=== PATIENT | female | born 1970 | race Caucasian/White ===

== ENCOUNTER → 2018-08-31 | Outpatient (REF) | payer BC ==
[~2018-08-31] MED LIST: /MOM400 PO; ACET50TA PO; ANUS2.5C2 EXT; COLA50CA3 PO; IBUP600T26 PO; LANOOIN21 TOP; PRENTAB74 PO
[2018-08-31 19:02] LABS: BASO % 0.7 % (0.0-1.0); EOS # 0.1 10^3/uL (0.0-0.50); EOS % 1.2 % (0.0-3.0); HEMATOCRIT 38.2 % (36.0-47.0); LYMPH # 1.2 10^3/uL (1.5-4.5); LYMPH % 27.8 % (24.0-44.0); MEAN CORPUSCULAR HEMOGLOBIN 28.1 pg (27.0-33.0); MEAN CORPUSCULAR HGB CONC 31.4 g/dl (32.0-36.5); MEAN CORPUSCULAR VOLUME 89.5 fl (80.0-96.0); MONO # 0.4 10^3/uL (0.0-0.8); MONO % 8.3 % (0.0-5.0); NEUTROPHILS # 2.7 10^3/uL (1.8-7.7); NEUTROPHILS % 61.5 % (36.0-66.0); PLATELET COUNT, AUTOMATED 174 10^3/uL (150-450); RED BLOOD COUNT 4.27 10^6/uL (4.00-5.40); WHITE BLOOD COUNT 4.3 10^3/uL (4.0-10.0)
[2018-08-31 19:26] LABS: ALBUMIN 4.1 GM/DL (3.2-5.2); ALT/SGPT 30 U/L (12-78); BILIRUBIN,TOTAL 0.3 MG/DL (0.2-1.0); BLOOD UREA NITROGEN 18 MG/DL (7-18); CALCIUM LEVEL 8.7 MG/DL (8.5-10.1); CARBON DIOXIDE LEVEL 25 MEQ/L (21-32); CHLORIDE LEVEL 108 MEQ/L (98-107); CHOLESTEROL LEVEL 175 MG/DL (<200); CHOLESTEROL RISK RATIO 1.966 (<5); CREATININE FOR GFR 0.88 MG/DL (0.55-1.30); FREE T4 0.81 NG/DL (0.76-1.46); GLOMERULAR FILTRATION RATE > 60.0 (>58); GLUCOSE, FASTING 85 MG/DL (70-100); HDL CHOLESTEROL 89 MG/DL (>40); LDL CHOLESTEROL 77 MG/DL (<100); NON-HDL-C 86 MG/DL; POTASSIUM SERUM 4.2 MEQ/L (3.5-5.1); SODIUM LEVEL 141 MEQ/L (136-145); TRIGLYCERIDES LEVEL 45 MG/DL (<150)
== END ==
LOC: M SFHCLERA 10:56
PROVIDERS: ATTEND Nurse Practitioner Family
DX: Z76.89 Persons encountering health services in other specified circumstances (principal)

== ENCOUNTER → 2018-10-13 | Outpatient (CLI) | payer BC ==
[2018-10-13 20:33] LABS: FREE T4 0.82 NG/DL (0.76-1.46); THYROID STIMULATING HORMONE 2.78 uIU/ML (0.358-3.740)
[2018-10-13 20:34] LABS: THYROID PEROXIDASE ANTIBODY 36.5 U/ML (<60.0); TOTAL 25(OH) VITAMIN D 21.3 NG/ML (30.0-100.0)
[2018-10-13 20:35] LABS: TOTAL T3 67.5 NG/DL (60.0-181.0)
[2018-10-15 14:44] LABS: THRYOGLOBULIN ANTIBODIES (ATA) < 1.0 IU/mL (0.0-0.9); THYROGLOBULIN QUANTITATIVE 9.3 ng/mL (1.5-38.5)
== END ==
LOC: M LRY 16:02
PROVIDERS: ATTEND Internal Medicine Endocrinology, Diabetes & Metabolism
DX: E03.9 Hypothyroidism, unspecified (principal)

== ENCOUNTER → 2018-11-17 | Outpatient (CLI) | payer BC ==
[~2018-11-17] MED LIST changes: -/MOM400 PO; -ACET50TA PO; +MAPA500T17 PO; +MILK10SU PO
== END ==
LOC: M LRY 08:02
PROVIDERS: ATTEND Internal Medicine Endocrinology, Diabetes & Metabolism
DX: R63.5 Abnormal weight gain (principal)

== ENCOUNTER → 2019-03-08 | Outpatient (REF) | payer BC | LOC: M LAB REF 12:23 | PROVIDERS: ATTEND Internal Medicine Endocrinology, Diabetes & Metabolism | DX: E03.9 Hypothyroidism, unspecified (principal) ==

== ENCOUNTER → 2019-03-18 | Outpatient (CLI) | payer BC ==
[~2019-03-18] MED LIST changes: +PROHANCE 279.3MG/ML 15ML VIAL (A9576) As Ordered ONE
== END ==
LOC: M RAD 12:21
PROVIDERS: ATTEND Nurse Practitioner Family
DX: R79.89 Other specified abnormal findings of blood chemistry (principal); Z53.9 Procedure and treatment not carried out, unspecified reason

== ENCOUNTER → 2019-03-25 | Outpatient (CLI) | payer BC ==
[~2019-03-25] MED LIST changes: -PROHANCE 279.3MG/ML 15ML VIAL (A9576) As Ordered ONE
--- NOTE | 2019-03-25 10:19 | REP ---
MRI of the brain without contrast Indication: Elevated morning serum cord is a level. Comparison: None Technique: MRI of the brain was performed utilizing sagittal T1, axial DWI, axial T2, axial FLAIR as well as T1-thin coronal of the pituitary, T1 sagittal thin and T1 axial thin of the pituitary. No intravenous contrast was administered as IV access could not be obtained. Findings: There is no restricted diffusion to suggest acute ischemia or infarction. Ventricles are symmetric and unremarkable. There is no mass effect. There is no midline shift or basal cistern effacement. The visualized flow voids are preserved. The orbital contents are intact. The visualized paranasal sinus and mastoid air cells are clear. Note is made of partially empty sella. The pituitary gland is not enlarged on sagittal T1 imaging. Impression: Limited examination in the absence of intravenous contrast. Within this limitation, the pituitary is not enlarged. Recommend repeat MRI of the pituitary when IV access can be obtained to exclude a pituitary lesion. Electronically Signed by Serina Miramontes MD 03/25/2019 10:10 A
== END ==
LOC: M PLARAD 08:05
PROVIDERS: ATTEND Nurse Practitioner Family
DX: R79.89 Other specified abnormal findings of blood chemistry (principal)

== ENCOUNTER → 2019-04-25 | Outpatient (CLI) | payer OTHER ==
[~2019-04-25] MED LIST changes: +PROHANCE 279.3MG/ML 5ML VIAL (A9576) As Ordered ONE
--- NOTE | 2019-04-25 15:37 | REP ---
MRI brain without and with IV contrast: Pituitary exam. History: Elevated morning cortisol level. Comparison noncontrast MRI study is from March 25, 2019. No other comparison imaging. Technique: Axial and sagittal imaging planes are utilized for T1 and T2-weighted scans. Sequences include spin-echo, fast spin echo, FLAIR, and diffusion weighted sequences. Dynamically acquired post contrast images through the sella turcica are acquired. Postcontrast T1-weighted images through the brain are acquired. Gadolinium enhancement dose of 7 mL of intravenous ProHance. MRI findings: The pituitary stalk enhances normally and is in the midline. The sella turcica is not enlarged. The pituitary gland measures 4 mm in thickness in the craniocaudal plane. Suprasellar cistern and optic chiasm are unremarkable. No vascular abnormality is seen. There is no abnormal intracranial contrast enhancement. Dynamic postcontrast enhanced images through the sella turcica show no evidence to suggest microadenoma. Impression: Normal MRI study of the brain and sella turcica. Electronically Signed by Kris Reyes MD 04/25/2019 03:47 P
== END ==
LOC: M RAD 10:54
PROVIDERS: ATTEND Nurse Practitioner Family
DX: R79.89 Other specified abnormal findings of blood chemistry (principal)
CPT/HCPCS: 70553; A9576